=== PATIENT | female | born 1985 | race Caucasian/White ===

== ENCOUNTER 2020-01-29 01:43 | Inpatient (IN) | payer MEDICAID, SELFPAY ==
[~2020-01-29] VITALS: Ht 160 cm; Wt 95.3 kg
[2020-01-29 01:50] VITALS: BP_SYST 145
--- NOTE | 2020-01-29 01:50 | NUR ---
Patient triaged and placed in the ambulance. VSS and patient appears in no acute distress at this time. Accompanied by [facility]), awaiting available bed, and MD notified of need for MSE.
[2020-01-29 02:25] LABS: CALCIUM 9.4 mg/dL (8.4-11.0); CREATININE 0.75 mg/dL (0.55-1.30); POTASSIUM 3.4 mmol/L (3.5-5.1)
[2020-01-29 02:31] LABS: ALBUMIN 3.6 g/dL (3.4-4.8); BASOPHILS # (AUTO) 0.1 K/uL (0.0-0.2); BASOPHILS % (AUTO) 0.6 % (0.0-2.0); EOSINOPHILS # (AUTO) 0.1 K/uL (0.0-0.4); EOSINOPHILS % (AUTO) 0.9 % (0.0-4.0); HEMATOCRIT 41.7 % (36-48); LYMPHOCYTES # (AUTO) 3.4 K/uL (1.0-5.5); LYMPHOCYTES % (AUTO) 23.7 % (20.5-51.5); MEAN CORPUSCULAR HEMOGLOBIN 32 pg (27-31); MEAN CORPUSCULAR HGB CONC 34 % (32-36); MEAN CORPUSCULAR VOLUME 94 fL (79.0-98.0); MONOCYTES # (AUTO) 0.8 K/uL (0.0-1.0); MONOCYTES % (AUTO) 5.6 % (1.7-9.3); NEUTROPHILS # (AUTO) 9.8 K/uL (1.8-7.7); NEUTROPHILS % (AUTO) 69.2 % (40.0-70.0); PLATELET COUNT (AUTO) 314 K/uL (130-430); RED BLOOD CELL COUNT(AUTO) 4.44 MIL/uL (4.2-6.2); RED CELL DISTRIBUTION WIDTH 12.7 % (9.0-15.0); TOTAL BILIRUBIN 0.2 mg/dL (0.0-1.0); WHITE BLOOD COUNT (AUTO) 14.2 K/uL (4.8-10.8)
--- NOTE | 2020-01-29 02:54 | NUR ---
Patient to ER bed 5 to gown for evaluation. Side rails up. Report given to JOSH BOATENG.
--- NOTE | 2020-01-29 03:10 | NUR ---
PT BIBA TO ED C/O RLQ ABD PAIN X 3 DAYS.DENIES N/V/DIARRHEA/COUGH HOWEVER, DENIES FEVER/CHILL/BACK PAIN/CP/SOB NO OTHER COMPLAINTS NOTED VSS NO S/S OF ACUTE DISTRESS RESTING ON GURNEY RAILS UP
--- NOTE | 2020-01-29 03:20 | NUR ---
Dr. Chaidez bedside for pt eval
[2020-01-29] MEDS ORDERED: ONDANSETRON HCL 4 MG/2 ML VIAL IVP ONE (03:30)
[2020-01-29] MEDS ORDERED: MORPHINE 4 MG/ML INJ. SYRINGE IVP ONE (03:30)
--- NOTE | 2020-01-29 03:30 | NUR ---
Pt awaiting Radiology for meet her at bedside
[2020-01-29] MEDS ORDERED: MORPHINE 4 MG/ML INJ. SYRINGE ONE (03:49)
--- NOTE | 2020-01-29 04:32 | NUR ---
VSS, back from Radiology well tolerated
--- NOTE | 2020-01-29 05:02 | NUR ---
Dr. Chaidez bedside for pt Q&A and update
--- NOTE | 2020-01-29 05:48 | NUR ---
Pt decided she's not in good enough shape to go to [facility], she would like to be adm here at [facility] as patient self pay
--- NOTE | 2020-01-29 06:04 | NUR ---
S/W Dr. Sibley regarding adm orders
--- NOTE | 2020-01-29 06:15 | NUR ---
No bed / staff for [facility] Bed assignment, corn breeder aware
--- NOTE | 2020-01-29 06:43 | NUR ---
DR. RICARDO AT BEDSIDE EVALUATING PATIENT.
[2020-01-29] MEDS ORDERED: MORPHINE 2 MG/ML INJ. SYRINGE IVP PRN (07:15)
[2020-01-29] MEDS ORDERED: MORPHINE 4 MG/ML INJ. SYRINGE IVP PRN (07:15)
[2020-01-29] MEDS ORDERED: D5NS 1,000 ML IV SCH (07:15)
[2020-01-29] MEDS ORDERED: METOCLOPRAMIDE HCL 10 MG/2 ML VIAL IVP PRN (07:15)
[2020-01-29] MEDS ORDERED: ACETAMINOPHEN 325 MG TABLET PO PRN (07:15)
[2020-01-29] MEDS ORDERED: ONDANSETRON HCL 4 MG/2 ML VIAL IVP PRN (07:15)
--- NOTE | 2020-01-29 07:15 | NUR ---
REPORT RECEIVED FROM KILO MORENO FOR CONTINUING CARE
--- NOTE | 2020-01-29 08:41 | NUR ---
Pt moved to bed 02
[2020-01-29] MEDS ORDERED: cefTRIAXone 1 GM IVPB PREMIX 50 ML IV SCH (09:00)
--- NOTE | 2020-01-29 09:01 | NUR ---
PT RESTING IN BED, C/O 10/10 RLQ ABD PAIN. PT MEDICATED FOR PAIN
--- NOTE | 2020-01-29 09:56 | NUR ---
Patient moved to hallway 1.
--- NOTE | 2020-01-29 12:38 | NUR ---
calm, alert, ambreen to assume care
[2020-01-29] MEDS ORDERED: KETOROLAC TROMETHAMINE 30 MG VIAL ONE (12:58)
[2020-01-29] MEDS ORDERED: KETOROLAC TROMETHAMINE 30 MG VIAL IVP ONE (13:00)
--- NOTE | 2020-01-29 13:25 | NUR ---
ADMISSION NOTE Received patient from ER via vel, received report from MINOR BOATENG. Patient admitted with diagnosis of ABDOMINAL PASIN/RENAL STONE. Patient oriented to hospital routine, call light, toileting and safety-patient verbalized understanding.
[2020-01-29 13:42] VITALS: BP_SYST 139
--- NOTE | 2020-01-29 13:48 | NUR ---
CONSULTATION PAGED/CALLED Reason for Consultation: RENAL STONE Person Who was Notified: STEPHANIE Consulting Physician: DR. FREDDY GRIJALVA Diving Coach Specialty: UROLOGIST Ordering Physician: DR. RICARDO
--- NOTE | 2020-01-29 13:49 | NUR ---
Patient will be admitted to care of MD. Admitted to M/S unit. Will go to room 116. Belongings list completed. Complete and up to date summary report printed. SBAR report to be given at bedside with opportunity for questions.
[2020-01-29] MEDS ORDERED: FLU VACC QS2020-21 (6 mos & up) 0.5 ML/SYRINGE I.M. PRN (14:00)
[2020-01-29 15:39] VITALS: BP_SYST 114
--- NOTE | 2020-01-29 15:40 | NUR ---
PATIENT RESTING: Patient resting quietly. No acute distress noted. Vital signs within normal range.
[2020-01-29] MEDS ORDERED: TAMS-11 PO (17:00)
--- NOTE | 2020-01-29 17:00 | NUR ---
Seen and examined by Dr. Jagjit malik, patient denies any pain.
[2020-01-29 17:15] VITALS: BP_SYST 114
--- NOTE | 2020-01-29 17:30 | NUR ---
D/C Patient Patient given medication reconciliation form and D/C instructions. Exit Care provided. Patient verbalized understanding. MD discussed with patient the results and treatment provided. Ambulatory with steady gait for discharge to home. Patient in stable condition, ID band removed. IV catheter removed, intact and dressing applied, no active bleeding.E Rx of flomax given. Patient educated on pain management. All belongings sent with patient.
--- NOTE | 2020-01-29 17:54 | NUR ---
Paged Dr. Sibley patient is Covid rapid test is positive.
--- NOTE | 2020-01-29 18:30 | NUR ---
Discharged instruction regarding Covid positive/ isolation , proper hygiene , given to patient verbalized understanding
== END 2020-01-29 18:30 | disposition home or self-care (01) | DRG 137 ==
LOC: SED 01:43 → SMU 05:59
PROVIDERS: ADMIT Internal Medicine Hospice and Palliative Medicine; ATTEND Internal Medicine Hospice and Palliative Medicine
DX: U07.1 COVID-19 (principal); N23 Unspecified renal colic; N13.2 Hydronephrosis with renal and ureteral calculous obstruction; Z90.710 Acquired absence of both cervix and uterus
CPT/HCPCS: 36415; 76376; 80053; 85025; J0696; J1885; J2270; J2405